=== PATIENT | female | born 1955 | race Caucasian/White ===

== ENCOUNTER → 2016-08-29 | Outpatient (CLI) | payer OTHER ==
[2016-08-29 15:06] LABS: ABSOLUTE BASOPHILS # (AUTO) 0.1 10^3/uL (0.0-0.2); ABSOLUTE EOSINOPHILS # (AUTO) 0.2 10^3/uL (0.0-0.6); ABSOLUTE LYMPHOCYTES (AUTO) 1.8 10^3/uL (0.5-4.7); ABSOLUTE MONOCYTES (AUTO) 0.9 10^3/uL (0.1-1.4); ABSOLUTE NEUT (AUTO) 4.5 10^3/uL (1.7-8.2); BASOPHILS % (AUTO) 1.2 % (0-2); HEMATOCRIT 38.8 % (36.0-47.0); HEMOGLOBIN 13.4 g/dL (12.0-15.5); HGB HCT DIFFERENCE 1.4; LYMPHOCYTES % (AUTO) 24.5 % (13-45); MEAN CORPUSCULAR HEMOGLOBIN 31.3 pg (27.0-33.4); MEAN CORPUSCULAR HGB CONC 34.5 g/dL (32.0-36.0); MEAN CORPUSCULAR VOLUME 91 fl (80-97); MONOCYTES % (AUTO) 11.5 % (3-13); RED BLOOD COUNT 4.27 10^6/uL (3.72-5.28); RED CELL DISTRIBUTION WIDTH 13.1 % (11.5-14.0); SEGMENTED NEUTROPHILS % (AUTO) 59.8 % (42-78); WHITE BLOOD COUNT 7.6 10^3/uL (4.0-10.5)
[2016-08-29 15:58] LABS: ANION GAP 12 (5-19); BLOOD UREA NITROGEN 16 mg/dL (7-20); CALCIUM 9.5 mg/dL (8.4-10.2); CARBON DIOXIDE 28 mmol/L (22-30); CHLORIDE 100 mmol/L (98-107); CREATININE RESULT 1.04 mg/dL (0.52-1.25); GLUCOSE 72 mg/dL (75-110); POTASSIUM 4.4 mmol/L (3.6-5.0); SODIUM 139.6 mmol/L (137-145)
== END ==
LOC: OD 14:15
PROVIDERS: ATTEND Specialist
DX: R10.9 Unspecified abdominal pain (principal); K51.80 Other ulcerative colitis without complications
CPT/HCPCS: 36415; 80048; 85025

== ENCOUNTER 2016-09-28 09:45 | Day surgery (SDC) | payer OTHER ==
--- NOTE | 2016-09-22 12:32 | HISTORY AND PHYSICAL E ---
History and Physical NAME: DIANE JONES : 1955 AGE: 60Y ADMITTED: 09/28/2016 ROOM: CHIEF COMPLAINT: Diarrhea, history of polyps, recent history of C. diff. Plan colonoscopy. Reviewing records, I did first colon on her in 2002 where she did have family history of colon cancer. She does have history of polyps, abdominal pain, diarrhea. Colonoscopy in 2002 was negative. Her father had colon cancer, cancer. Her mom is alive. Patient has multiple colonoscopies. SOCIAL HISTORY: She does not smoke. She does not drink. . One child. The patient did have another colonoscopy in 2004. It shows diverticulosis. Another colonoscopy done in 2010. SURGERIES: 1. She did have cervical fusion. 2. Cholecystectomy. 3. Laparoscopy. 4. Appendectomy. 5. Oophorectomy. PHYSICAL EXAMINATION: VITAL SIGNS: Blood pressure is 120/80, pulse 80, respirations 18, temperature 98. HEAD, EYES, EARS, NOSE, AND THROAT: Normal. ABDOMEN: Soft. NEUROLOGIC: Negative. Upper scope done for reflux, abdominal pain, diarrhea. She does have esophagitis, gastritis, duodenitis. Patient did have CT. Gallbladder resected, upper abdominal organ negative. She does have some fluid collection in the sigmoid colon, question diverticulitis. She did have upper GI and small bowel follow through. The patient was seen again in 2015. Upper scope showed diverticulosis. She did have C. diff treated with vancomycin. CONCLUSION: 1. Persistent diarrhea. 2. Family history of colon cancer and diverticulosis. PLAN: Colonoscopy scheduled for 09/28/2016. DICTATING PHYSICIAN: DAWOOD WREN M.D. [id number] [id number] PHY#: [id number] ID: [id number] JOB#: [id number] ACCT: [id number] cc:DAWOOD WREN M.D. >
[~2016-09-28 09:45] MED LIST: EPINEPHRINE INJ 1 MG/10 ML DISP.SYRIN ONE; FLUMAZENIL INJ 0.5 MG/5 ML VIAL IV ONE; GLUCAGON,HUMAN RECOMB 1 MG INJ ONE; GLYCOPYRROLATE INJ 0.4 MG/2 ML VIAL ONE; LIDOCAINE 2% JELLY 30 ML TUBE ONE; NALOXONE HCL INJ/PF 0.4 MG/1 ML SDV ONE; ONDANSETRON HCL INJ/PF 4 MG/2 ML SDV ONE; PROMETHAZINE HCL INJ 25 MG/1 ML VIAL ONE
[2016-09-28] MEDS: MIDAZOLAM 2 MG/2 ML INJ ONE ×3 (10:32→10:43)
[2016-09-28] MEDS: FENTANYL CITRATE INJ/PF 100 MCG/2 ML AMPUL ONE ×2 (10:34→10:38)
[2016-09-28 11:54] VITALS: BP 111/66
[2016-09-28 11:56] LABS: ABSOLUTE BASOPHILS # (AUTO) 0.1 10^3/uL (0.0-0.2); ABSOLUTE EOSINOPHILS # (AUTO) 0.1 10^3/uL (0.0-0.6); ABSOLUTE LYMPHOCYTES (AUTO) 1.7 10^3/uL (0.5-4.7); ABSOLUTE MONOCYTES (AUTO) 1.1 10^3/uL (0.1-1.4); ABSOLUTE NEUT (AUTO) 8.1 10^3/uL (1.7-8.2); BASOPHILS % (AUTO) 0.8 % (0-2); EOSINOPHILS % (AUTO) 1.1 % (0-6); HEMATOCRIT 37.5 % (36.0-47.0); HEMOGLOBIN 12.6 g/dL (12.0-15.5); HGB HCT DIFFERENCE 0.3; LYMPHOCYTES % (AUTO) 15.2 % (13-45); MEAN CORPUSCULAR HEMOGLOBIN 31.2 pg (27.0-33.4); MEAN CORPUSCULAR HGB CONC 33.7 g/dL (32.0-36.0); MEAN CORPUSCULAR VOLUME 93 fl (80-97); MONOCYTES % (AUTO) 9.7 % (3-13); RED BLOOD COUNT 4.04 10^6/uL (3.72-5.28); RED CELL DISTRIBUTION WIDTH 12.6 % (11.5-14.0); SEGMENTED NEUTROPHILS % (AUTO) 73.2 % (42-78); WHITE BLOOD COUNT 11.1 10^3/uL (4.0-10.5)
[2016-09-28 12:38] LABS: ERYTHROCYTE SEDIMENTATION RATE 36 mm/hr (0-30)
--- NOTE | 2016-09-28 12:57 | OPERATIVE REPORT E ---
Operative Report NAME: DIANE JONES : 1955 AGE: 60Y DATE OF SURGERY: 09/28/2016 ROOM: PREOPERATIVE DIAGNOSES: 1. Diarrhea. 2. History of C. diff. 3. Diverticulosis. POSTOPERATIVE DIAGNOSIS: Diverticulosis, sigmoid and descending colon. I did not see any polyps. PROCEDURE: Colonoscopy. SURGEON: DAWOOD WREN M.D. ANESTHESIA: Versed 4 mg and Fentanyl 100 mcg. TISSUE REMOVED OR ALTERED: Biopsy of right colon, consider collagenous colitis. PROCEDURE: Rectal exam normal. Sigmoid and descending colon diverticulosis. Descending colon diverticulosis. Transverse colon normal. Ascending colon normal. Cecum normal. Biopsy obtained, right colon, rule out collagenous colitis. Scope withdrawn cecum, ascending, transverse, descending, sigmoid all the way to the rectum. CONCLUSIONS: 1. Diverticulosis, sigmoid and descending colon. 2. Preop diarrhea, etiology undetermined. 3. Family history of colorectal malignancy. FINAL DIAGNOSIS: Diverticulosis with no diverticulitis. The patient tolerated the procedure well and was discharged to her room in stable condition. DICTATING PHYSICIAN: DAWOOD WREN M.D. 1209M [id number] PHY#: [id number] ID: [id number] JOB#: [id number] ACCT: [id number] cc:DAWOOD WREN M.D. >
--- NOTE | 2016-09-28 14:08 | DISCHARGE SUMMARY E ---
Discharge Summary NAME: DIANE JONES : 1955 AGE: 60Y ADMITTED: 09/28/2016 DISCHARGED: 09/28/2016 PROCEDURE: Colonoscopy and biopsy. FINAL DIAGNOSIS: Diverticulosis, sigmoid and descending colon. No evidence of C. diff on colonoscopy. HISTORY: The patient is 60 and presented with diarrhea, history of C. diff, history of polyps. Today's colonoscopy shows no polyps, no C. diff, and diverticulosis of sigmoid and descending colon. The patient did have cholecystectomy, appendectomy, oophorectomy, reflux, and hypothyroidism. DISCHARGE PLAN: 1. Soft low-residue diet. 2. Awaiting biopsy results. 3. I will obtain baseline CBC with diff and C-reactive protein. DICTATING PHYSICIAN: DAWOOD WREN M.D. 1209M 1114 PHY#: [id number] ID: [id number] JOB#: [id number] ACCT: [id number] cc:DAWOOD WREN M.D. >
--- NOTE | 2016-09-29 12:11 | DISCHARGE SUMMARY E ---
Discharge Summary NAME: DIANE JONES : 1955 AGE: 60Y ADMITTED: 09/28/2016 DISCHARGED: 09/28/2016 ADDENDUM: The patient is 60 and presents with chief complaint of diarrhea. Recent history of C. diff., family history of colorectal malignancy. Today's colonoscopy shows no polyps. Sigmoid descending diverticulosis. DISCHARGE PLAN: Soft, low residue diet. Consider followup colonoscopy in 10 years. DICTATING PHYSICIAN: DAWOOD WREN M.D. 1221M 1139 PHY#: [id number] ID: [id number] JOB#: [id number] ACCT: [id number] cc:DAWOOD WREN M.D. >
== END 2016-09-28 12:00 | disposition home or self-care (01) ==
LOC: END 09:45
PROVIDERS: ATTEND Specialist
PROC: 0DBF8ZX Excision of Right Large Intestine, Via Natural or Artificial Opening Endoscopic, Diagnostic (ICD-10-PCS; principal; 2016-09-28 10:00)
DX: K57.30 Diverticulosis of large intestine without perforation or abscess without bleeding (principal); R19.7 Diarrhea, unspecified; Z80.0 Family history of malignant neoplasm of digestive organs; K21.9 Gastro-esophageal reflux disease without esophagitis; E03.9 Hypothyroidism, unspecified
CPT/HCPCS: 45380; 36415; 85025; 85652; 86140; 88305 ×2; J2250; J3010; J1610; J2405; J0171; J2310; J2550; J3490

== ENCOUNTER → 2016-10-11 | Outpatient (CLI) | payer OTHER ==
[2016-10-11 16:32] LABS: ABSOLUTE BASOPHILS # (AUTO) 0.1 10^3/uL (0.0-0.2); ABSOLUTE EOSINOPHILS # (AUTO) 0.1 10^3/uL (0.0-0.6); ABSOLUTE LYMPHOCYTES (AUTO) 2.1 10^3/uL (0.5-4.7); ABSOLUTE MONOCYTES (AUTO) 1.1 10^3/uL (0.1-1.4); ABSOLUTE NEUT (AUTO) 2.9 10^3/uL (1.7-8.2); BASOPHILS % (AUTO) 0.9 % (0-2); EOSINOPHILS % (AUTO) 1.7 % (0-6); HEMATOCRIT 38.6 % (36.0-47.0); HGB HCT DIFFERENCE 0.4; LYMPHOCYTES % (AUTO) 33.1 % (13-45); MEAN CORPUSCULAR HEMOGLOBIN 31.1 pg (27.0-33.4); MEAN CORPUSCULAR HGB CONC 33.7 g/dL (32.0-36.0); MEAN CORPUSCULAR VOLUME 92 fl (80-97); MONOCYTES % (AUTO) 17.9 % (3-13); RED BLOOD COUNT 4.19 10^6/uL (3.72-5.28); SEGMENTED NEUTROPHILS % (AUTO) 46.4 % (42-78); WHITE BLOOD COUNT 6.3 10^3/uL (4.0-10.5)
[2016-10-11 16:51] LABS: ANION GAP 9 (5-19); BLOOD UREA NITROGEN 15 mg/dL (7-20); CALCIUM 9.4 mg/dL (8.4-10.2); CARBON DIOXIDE 26 mmol/L (22-30); CHLORIDE 103 mmol/L (98-107); CREATININE RESULT 0.85 mg/dL (0.52-1.25); GLUCOSE 108 mg/dL (75-110); POTASSIUM 3.8 mmol/L (3.6-5.0); SODIUM 138.4 mmol/L (137-145)
== END ==
LOC: OD 15:57
PROVIDERS: ATTEND Specialist
DX: R19.7 Diarrhea, unspecified (principal); R10.9 Unspecified abdominal pain
CPT/HCPCS: 36415; 80048; 85025; 87045; 87205; 87493

== ENCOUNTER 2018-01-25 08:36 | Day surgery (SDC) | payer MEDICAID, OTHER ==
[2018-01-25] MEDS ORDERED: ONDANSETRON HCL INJ/PF 4 MG/2 ML SDV ONE ×2 (09:15→09:45)
[2018-01-25] MEDS ORDERED: MIDAZOLAM 2 MG/2 ML INJ ONE ×2 (09:16→09:45)
[2018-01-25] MEDS ORDERED: RINGERS SOLUTION,LACTATED 500 ML IV ONE (09:30)
[2018-01-25] MEDS ORDERED: PROPOFOL INJ 200 MG/20 ML VIAL IV ONE (09:46)
[2018-01-25] MEDS ORDERED: LIDOCAINE 2% INJ-PF (20 MG/ML) 10 ML AMPUL ONE (09:47)
[2018-01-25] MEDS ORDERED: FENTANYL CITRATE INJ/PF 100 MCG/2 ML AMPUL IV PRN ×3 (10:28)
[2018-01-25] MEDS ORDERED: DIPHENHYDRAMINE HCL 50 MG/ML VIAL IV PRN (10:28)
[2018-01-25] MEDS ORDERED: PROMETHAZINE HCL INJ 25 MG/1 ML VIAL IV PRN (10:28)
--- NOTE | 2018-01-25 10:40 | Operative Report ---
Operative Report DATE OF SURGERY: 01/25/18 Operative Report: The risks, benefits and alternatives of the procedure are explained to the patient in detail and informed consent was obtained. The patient is taken back to the operating room and placed in the left, lateral decubital position. Timeout was called. Propofol medications administered. A rectal examination is done which did not reveal any masses, tears or fissures. An Olympus videoscope was inserted into the patient's rectum. The scope was then carefully advanced all the way to the cecum. The cecum was identified by the usual anatomical landmarks including the ileocecal valve as well as the appendiceal office. Photodocumentation is obtained. The scope was then sequentially pulled back via the rest segments of the colon including the ascending colon, hepatic flexure, transverse colon, splenic flexure, descending colon and finally into the rectosigmoid portions of the colon. Retroflexion maneuver is performed. PREOPERATIVE DIAGNOSIS: Change in bowel habits POSTOPERATIVE DIAGNOSIS: Right side: Inflammation status post biopsy rule out collagenous, microscopic, lymphocytic colitis. No evidence of ischemic colitis. No evidence of ulcerative colitis. No evidence of pseudomembranous colitis. OPERATION: Colonoscopy with biopsy SURGEON: MARY TESFAYE ANESTHESIA: LMAC TISSUE REMOVED OR ALTERED: As noted above. COMPLICATIONS: None. ESTIMATED BLOOD LOSS: None. INTRAOPERATIVE FINDINGS: As noted above. PROCEDURE: Patient tolerated procedure well. No immediate postprocedure complications are noted. Patient is discharged in good condition. Discharge date 01/25/2018. Discharge diet: Regular. Discharge activity: Regular. 2-3 week follow-up to discuss findings. Patient is instructed to call the office or proceed to the emergency room should there be any further problems or questions. We will wait on pathology.
[2018-01-25 12:11] VITALS: BP 130/65
--- NOTE | 2018-01-25 20:54 | EKG REPORT ---
SEVERITY:- NORMAL ECG - SINUS RHYTHM : Confirmed by: Kate Dutton 25-Jan-2018 20:53:20
== END 2018-01-25 12:25 | disposition home or self-care (01) ==
LOC: OROUT 08:36
PROVIDERS: ATTEND Internal Medicine Gastroenterology
DX: K52.9 Noninfective gastroenteritis and colitis, unspecified (principal); K64.8 Other hemorrhoids; K57.30 Diverticulosis of large intestine without perforation or abscess without bleeding; J45.909 Unspecified asthma, uncomplicated; E07.9 Disorder of thyroid, unspecified; I10 Essential (primary) hypertension; Z79.899 Other long term (current) drug therapy; Z79.51 Long term (current) use of inhaled steroids
CPT/HCPCS: 45380; 88305 ×2; 93005; 93010; J2250; J2405; J2704; J3490; 811